=== PATIENT | female | born 1965 | race Caucasian/White ===

== ENCOUNTER 2018-02-19 10:08 | Outpatient (CLI) | payer OTHER ==
--- NOTE | 2018-02-19 17:50 | Diagnostic Imaging Report ---
NAKITA HARMAN [facility] [id number] [facility].[address] [id number] Report Submission Date: Feb 19, 2018 10:48:02 AM CDT Patient Study Name: MARIPOSA PADRON Date: Feb 19, 2018 10:14:55 AM CDT Modality Type: DX Gender: F Description: SHOULDER : 63 Institution: [facility] Physician: NAKITA HARMAN Examination: Plain film right shoulder History: RT SHOULDER, PAIN IN RT SHOULDER AFTER UNKNOWN INJURY YESTERDAY WITH WORSENING PAIN (Hx) Comparison exams: None provided Findings: 3 views of the right shoulder demonstrate normal cortical margins. No evidence for fracture or dislocation. Acromioclavicular joint degenerative changes. No soft tissue abnormality. Pulmonary granuloma. Impression: Mild acromioclavicular joint degenerative changes. No acute osseous process. Electronically signed on Feb 19, 2018 10:48:02 AM CDT by: Enmanuel OLVERA
== END 2018-02-19 10:10 ==
LOC: RAD 10:08
PROVIDERS: ATTEND Physician Assistant
DX: Z04.2 Encounter for examination and observation following work accident (principal); S49.91XA Unspecified injury of right shoulder and upper arm, initial encounter; Y92.9 Unspecified place or not applicable
CPT/HCPCS: 73030